=== PATIENT | female | born 1970 | race Caucasian/White ===

== ENCOUNTER 2016-07-24 08:39 | Emergency (ER) | payer OTHER ==
[2016-07-24 10:33] LABS: HEMOGLOBIN 14.7 gm/dl (12.3-15.3); RED BLOOD COUNT 4.86 M/UL (4.00-5.10); WHITE BLOOD COUNT 9.4 K/UL (4.5-11.0)
[2016-07-24 10:51] LABS: BUN/CREATININE RATIO 8 (0-10)
== END 2016-07-24 12:10 | disposition left against medical advice (07) ==
LOC: ER1 08:39
PROVIDERS: Emergency Medicine
DX: R42 Dizziness and giddiness (principal); F17.200 Nicotine dependence, unspecified, uncomplicated; Z88.0 Allergy status to penicillin; Z85.841 Personal history of malignant neoplasm of brain
CPT/HCPCS: 36415; 70450; 71010; 80053; 81001; 82550; 82553; 83874; 84484; 85025; 93005; 99284

== ENCOUNTER 2020-08-16 18:23 | Emergency (ER) | payer OTHER ==
[~2020-08-16 18:23] MED LIST: IBUPROFEN600 MG PO
[2020-08-16 20:08] LABS: HEMOGLOBIN 13.7 gm/dl (12.3-15.3); RED BLOOD COUNT 4.51 M/UL (4.00-5.10)
[2020-08-16 20:18] LABS: BUN/CREATININE RATIO 13 (0-10)
[2020-08-16] MEDS ORDERED: ZOFRAN ODT 4 MG4 MG GT (21:28)
== END 2020-08-16 21:44 | disposition home or self-care (01) ==
LOC: ER1 18:23
PROVIDERS: Family Medicine
DX: R51.9 Headache, unspecified (principal); R11.2 Nausea with vomiting, unspecified
CPT/HCPCS: 70450; 80053; 81001; 85025; 93005; 96374; 99284; J2405